=== PATIENT | female | born 1980 | race Two or more races ===

== ENCOUNTER 2021-02-12 16:42 | Emergency (ER) | payer MEDICAID ==
[~2021-02-12] VITALS: Ht 149.9 cm; Wt 72.6 kg
[2021-02-12 17:24] LABS: *BILIRUBIN,URIN NEGATIVE (NEGATIVE); *BLOOD, URINE 2+ (NEGATIVE); *CLARITY,URINE SLIGHTLY CLOUDY (CLEAR); *COLOR,URINE YELLOW (YELLOW); *KETONES,URINE NEGATIVE (NEGATIVE); *UROBILINOGEN,URINE 0.2 E.U./dl (NORMAL); LEUKOCYTE ESTERASE ,URINE 3+ (NEGATIVE); NITRITE, URINE NEGATIVE (NEGATIVE); UGLUCOSE NEGATIVE (NEGATIVE)
[2021-02-12 17:34] LABS: *URINE HCG, QUAL NEGATIVE (NEGATIVE)
[2021-02-12 17:38] LABS: BACTERIA,URINE FEW /HPF (NONE SEEN); MUCUS,URINE FEW /LPF (0-FEW); RBC,URINE TNTC /HPF (0-3); SQUAMOUS EPITHELIAL CELL,UR FEW /HPF (NONE SEEN); URINE AMORPHOUS URATE MODERATE /HPF; WBC,URINE TNTC /HPF (0-3)
--- NOTE | 2021-02-12 18:21 | NUR ---
Patient discharged to home in stable condition. Written and verbal after care instructions given. Patient verbalizes understanding of instructions. Stressed follow up or return to ER for worsening s/s.
== END 2021-02-12 18:22 | disposition home or self-care (01) ==
LOC: ER 16:42
DX: N39.0 Urinary tract infection, site not specified (principal)
CPT/HCPCS: 84703; 87077; 87086; A4663

== ENCOUNTER 2023-01-28 04:00 | Emergency (ER) | payer MEDICAID ==
[~2023-01-28] VITALS: Ht 149.9 cm; Wt 68.0 kg
--- NOTE | 2023-01-28 04:20 | NUR ---
Dr Cortez at bedside MSE in progress
[2023-01-28] MEDS ORDERED: IV NORMAL SALINE 1000 ML BAG IV ONE (04:30)
[2023-01-28] MEDS ORDERED: ACETAMINOPHEN 325 MG TABLET PO ONE (04:30)
[2023-01-28] MEDS ORDERED: KETOROLAC TROMETHAMINE 15 MG INJ IVP ONE (04:30)
[2023-01-28 04:38] LABS: *BILIRUBIN,URIN NEGATIVE (NEGATIVE); *BLOOD, URINE 2+ (NEGATIVE); *CLARITY,URINE CLEAR (CLEAR); *COLOR,URINE YELLOW (YELLOW); *KETONES,URINE NEGATIVE (NEGATIVE); *UROBILINOGEN,URINE 0.2 E.U./dl (NORMAL); LEUKOCYTE ESTERASE ,URINE TRACE (NEGATIVE); NITRITE, URINE NEGATIVE (NEGATIVE); UGLUCOSE NEGATIVE (NEGATIVE)
[2023-01-28 04:40] LABS: *URINE HCG, QUAL NEG (NEGATIVE)
[2023-01-28 04:57] LABS: HEMATOCRIT 36.7 % (31.2-41.9); MEAN CORPUSCULAR HEMOGLOBIN 31.2 uug (24.7-32.8); MEAN CORPUSCULAR VOLUME 90.6 fL (75.5-95.3); PLATELET COUNT (AUTO) 218 K/uL (179-408)
[2023-01-28 05:05] LABS: CREATININE 0.7 mg/dL (0.6-1.3); POTASSIUM 4.2 mmol/L (3.5-5.1)
[2023-01-28 05:11] LABS: BILIRUBIN,TOTAL 0.4 mg/dL (0.2-1.0); TOTAL PROTEIN, SERUM 8.7 g/dL (6.4-8.2)
[2023-01-28] MEDS ORDERED: ACETAMINOPHEN 325 MG TABLET ONE (05:17)
[2023-01-28] MEDS ORDERED: KETOROLAC TROMETHAMINE 30 MG INJ ONE (05:17)
--- NOTE | 2023-01-28 05:20 | NUR ---
Pulled out 30mg Toradol due to no 15mg vial available on pyxis. 15mg Toradol given, extra dose wasted with Alpha RN
[2023-01-28] MEDS ORDERED: IV NORMAL SALINE 250 ML IV ONE (06:03)
[2023-01-28] MEDS ORDERED: IOHEXOL 300MG/ML 100 ML INFUS..BTL ONE (06:03)
--- NOTE | 2023-01-28 06:11 | NUR ---
Patient taken to CT by ermias Brown
--- NOTE | 2023-01-28 07:00 | NUR ---
Pt. in bed VS WNL
[2023-01-28 07:24] LABS: BACTERIA,URINE MODERATE /HPF (NONE SEEN); SQUAMOUS EPITHELIAL CELL,UR MODERATE /HPF (NONE SEEN); WBC,URINE 0-3 /HPF (0-3)
[2023-01-28] MEDS ORDERED: AMOXICILLIN-CLAVUL 875-125MG TABLET PO ONE (08:15)
[2023-01-28] MEDS ORDERED: AMOX-430 PO (08:18)
[2023-01-28] MEDS ORDERED: AMOXICILLIN-CLAVUL 875-125MG TABLET ONE (08:25)
[2023-01-28 08:38] VITALS: BP 118/80
== END 2023-01-28 08:39 | disposition home or self-care (01) ==
LOC: ER 04:00
DX: R50.9 Fever, unspecified (principal); R00.0 Tachycardia, unspecified; K04.7 Periapical abscess without sinus; R30.0 Dysuria; M54.2 Cervicalgia; R07.89 Other chest pain; Z20.822 Contact with and (suspected) exposure to COVID-19
CPT/HCPCS: 99285; 96374; 70491; 71046; 96361; 87426; 87804 ×2; 80053; 81001; 84703; 85025; 36415; J1885; Q9967; J7040; A4663

== ENCOUNTER 2024-02-16 19:14 | Emergency (ER) | payer MEDICAID ==
[~2024-02-16] VITALS: Ht 149.9 cm; Wt 65.8 kg
[~2024-02-16 19:14] MED LIST: AMOX-430 PO
[2024-02-16] MEDS ORDERED: IBUPROFEN 400 MG TABLET ONE (21:37)
[2024-02-16] MEDS: IBUPROFEN 400 MG TABLET PO ONE (21:42)
[2024-02-16] MEDS ORDERED: DEXAMETHASONE 4 MG TABLET ONE (22:51)
[2024-02-16] MEDS ORDERED: AMOXicillin 250 MG CAPSULE ONE (22:51)
[2024-02-16] MEDS: AMOXicillin 250 MG CAPSULE PO ONE (22:53)
[2024-02-16] MEDS: DEXAMETHASONE 0.5 MG/5 ML LIQ UDC PO ONE (22:53)
[2024-02-16 23:00] VITALS: BP 145/66; TEMP 97.8; O2SAT 98
== END 2024-02-16 23:00 | disposition home or self-care (01) ==
LOC: ER 19:15
DX: J02.9 Acute pharyngitis, unspecified (principal); H92.02 Otalgia, left ear; I10 Essential (primary) hypertension; Z20.822 Contact with and (suspected) exposure to COVID-19
CPT/HCPCS: 99284; 87426; 86403; 87070; J8540; A4606; A4663